=== PATIENT | female | born 1985 ===

== ENCOUNTER → 2022-03-20 | Outpatient (CLI) ==
[~2022-03-20] MED LIST: HYDR-3583 PO; IBP600T1 PO; PREN1TAB39 PO
== END ==
LOC: LABNPT 16:11
PROVIDERS: ATTEND Obstetrics & Gynecology
DX: O13.9 Gestational [pregnancy-induced] hypertension without significant proteinuria, unspecified trimester (principal); Z3A.00 Weeks of gestation of pregnancy not specified
CPT/HCPCS: 82570; 84156

== ENCOUNTER → 2022-03-21 | Outpatient (CLI) | payer BC ==
--- NOTE | 2022-03-21 12:50 | Diagnostic Imaging Report ---
INDICATION: Gestational diabetes. TECHNIQUE: Multiple real-time grayscale images were obtained over the gravid uterus. COMPARISON: None FINDINGS: There is a single live fetus in a cephalic presentation. heart rate was recorded at 146 bpm. Placenta is anterior and to the right. Amniotic fluid index is 21.4 cm. Biophysical profile was performed with a normal score of 8 out of 8. Biometrical measurements are as follows: Biparietal 8.64 cm, age 34 weeks 6 days. Head circumference 33.13 cm, age 37 weeks 6 days. Abdominal circumference 36.85 cm, age 40 weeks 6 days. Femur length 7.19 cm, age 36 weeks 6 days. Sonographic estimate age: 37 weeks 5 days. Sonographic estimated date of delivery: 04/06/2022. Estimated Weight: 3603 gm (+/- 526 gm). LMP percentile: NA%. heart rate: 146 beats per minute. number: 1 of 1. IMPRESSION: Single live IUP of 37-38 weeks gestational age with estimated date of confinement sonographically of 04/06/2022. Biophysical profile score is normal at 8 out of 8. Dictated by: Dictated on workstation # [id number]
== END ==
LOC: RAD 09:57 → MERGE 09:57
PROVIDERS: ATTEND Obstetrics & Gynecology
DX: O24.419 Gestational diabetes mellitus in pregnancy, unspecified control (principal); Z3A.37 37 weeks gestation of pregnancy
CPT/HCPCS: 76805; 76819

== ENCOUNTER 2022-03-24 09:02 | Outpatient (CLI) | payer BC ==
[~2022-03-24] VITALS: Ht 152.4 cm; Wt 74.1 kg
[2022-03-26] MEDS ORDERED: DOCU100C37 PO (08:59)
[2022-03-26] MEDS ORDERED: IBUP-844 PO (08:59)
[2022-03-26] MEDS ORDERED: ACHD5005 PO (08:59)
[2022-03-26] MEDS ORDERED: LABE200T7 PO (08:59)
== END 2022-03-24 14:07 | disposition home or self-care (01) ==
LOC: PREOP 09:02 → MERGE 09:02 → PREOP 14:07
PROVIDERS: ATTEND Obstetrics & Gynecology
DX: Z01.818 Encounter for other preprocedural examination (principal)

== ENCOUNTER 2022-03-26 05:38 | Inpatient (IN) | payer BC ==
[2022-03-26] VITALS (13 sets, daily range): BP systolic 117–181; BP diastolic 62–90
[~2022-03-26] VITALS: Ht 152.4 cm; Wt 74.3 kg
[2022-03-26] MEDS ORDERED: ceFAZolin 2 GM IV Premixed 50 ML IV ONE (06:00)
[2022-03-26 06:11] LABS: BASOPHILS % (AUTO) 1 % (0-10); EOSINOPHILS # (AUTO) 0.1 10^3/uL (0.0-0.3); EOSINOPHILS % (AUTO) 1 % (0-10); HEMATOCRIT 35 % (35-52); HEMOGLOBIN 11.5 g/dL (11.5-16.0); LYMPHOCYTES # (AUTO) 1.5 10^3/uL (1.0-4.0); LYMPHOCYTES % (AUTO) 24 % (12-44); MEAN CORPUSCULAR HEMOGLOBIN 28 pg (25-34); MEAN CORPUSCULAR HGB CONC 33 g/dL (32-36); MEAN CORPUSCULAR VOLUME 84 fL (80-99); MEAN PLATELET VOLUME 10.7 fL (9.0-12.2); MONOCYTES # (AUTO) 0.5 10^3/uL (0.0-1.0); MONOCYTES % (AUTO) 7 % (0-12); NEUTROPHILS # (AUTO) 4.2 10^3/uL (1.8-7.8); NEUTROPHILS % (AUTO) 66 % (42-75); PLATELET COUNT 158 10^3/uL (130-400); WHITE BLOOD COUNT 6.3 10^3/uL (4.3-11.0)
[2022-03-26] MEDS ORDERED: METOCLOPRAMIDE INJ 10 MG/2 ML (REGLAN) IV ONE (06:15)
[2022-03-26] MEDS ORDERED: CITRIC ACID/SOB CIT (BICITRA) 30 ML UDC PO ONE (06:15)
[2022-03-26] MEDS ORDERED: LACTATED RINGERS 1,000 ML IV SCH (06:15)
[2022-03-26] MEDS ORDERED: FAMOTIDINE 20MG/2ML IV (PEPCID) IV ONE (06:15)
--- NOTE | 2022-03-26 07:04 | History & Physical-OB ---
OB - Chief Complaint & HPI Date/Time Date of Admission: Date of Admission: Mar 26, 2022 at 05:38 Date seen by a Provider: Mar 26, 2022 Time Seen by a Provider: 07:05 Chief Complaint/History OB-Reason for Admission/Chief: Section Hx : 3 Hx Para: 2 Expected Date of Delivery: Apr 10, 2022 Gestational Age in Weeks: 37 Gestational Age in Days: 6 Other reason for admission: Delivery due to mild PreE, and GDM. Admission Nurse Assessment Rev: Yes Allergies and Home Medications Allergies Coded Allergies: No Known Drug Allergies (Unverified , 03/24/22) Patient Home Medication List Home Medication List Reviewed: Yes No Active Prescriptions or Reported Meds OB - History Hx of Present Care: Yes Ultrasounds: Normal mid trimester US Obstetrical Complications: Gestational Diabetes, Pre-eclampsia Medical Complications: None Obstetrical History Hx Termination: No Hx Multiple Gestation: No Hx Stillbirth: No Hx Complication: No Hx Induced Hypertens: No Hx Maternal Gestational Diabet: No Delivery History Hx Dystocia: No Hx Large For Gestational Age I: No Hx Small for Gestational Age I: No Hx Section: Yes Hx Vaginal Delivery Post C-Sec: No Hx Blood Disorders: Yes Patient Past Medical History n/a Social History/Family History 2nd Hand Smoke Exposure: No Immunizations Second COVID19 Vaccination: 06/01 COVID19 Vaccine Seismic Observer: maderna Tetanus Booster (TDap): Unknown OB - Admission Exam Physical Exam Vitals: Vital Signs 03/26/22 06:37 Pulse 72 Resp 18 B/P (MAP) 160/72 (101) Pulse Ox 100 O2 Delivery Room Air HEENT: NCAT Heart: Rhythm Normal Lungs: Clear Abdomen: Gravid Extremities: Normal Reflexes: Normal Heart Rate: 130's Accelerations: Accelerations Present Decelerations: No Decelerations Short Term Variability: Present Half-Way Variability: Average (6-25) Contractions on Admission: 6-10 Minutes Apart Intensity: Mild Labs Laboratory Tests Test 03/26/22 05:50 Range/Units White Blood Count 6.3 4.3-11.0 10^3/uL Red Blood Count 4.13 3.80-5.11 10^6/uL Hemoglobin 11.5 11.5-16.0 g/dL Hematocrit 35 35-52 % Mean Corpuscular Volume 84 80-99 fL Mean Corpuscular Hemoglobin 28 25-34 pg Mean Corpuscular Hemoglobin Concent 33 32-36 g/dL Red Cell Distribution Width 17.3 H 10.0-14.5 % Platelet Count 158 130-400 10^3/uL Mean Platelet Volume 10.7 9.0-12.2 fL Immature Granulocyte % (Auto) 1 % Neutrophils (%) (Auto) 66 42-75 % Lymphocytes (%) (Auto) 24 12-44 % Monocytes (%) (Auto) 7 0-12 % Eosinophils (%) (Auto) 1 0-10 % Basophils (%) (Auto) 1 0-10 % Neutrophils # (Auto) 4.2 1.8-7.8 10^3/uL Lymphocytes # (Auto) 1.5 1.0-4.0 10^3/uL Monocytes # (Auto) 0.5 0.0-1.0 10^3/uL Eosinophils # (Auto) 0.1 0.0-0.3 10^3/uL Basophils # (Auto) 0.0 0.0-0.1 10^3/uL Immature Granulocyte # (Auto) 0.1 0.0-0.1 10^3/uL Glucose Level 106 H 70-105 MG/DL OB - Assessment/Plan/Diagnosis Assessment Assessment: section Admission Dx 37 yo @37 weeks Previous AMA GDM Mild PreE Admission Status: Inpatient Order (span 2 midnights) Reason for Inpatient Admission: Repeat Plan Plan: Section KATIE HARPER DO Mar 26, 2022 07:04
[2022-03-26] MEDS ORDERED: fentaNYL INJ 100 MCG/2 ML AMP ONE (07:11)
[2022-03-26] MEDS ORDERED: OXYTOCIN PRE-MIX DRIP 1,000 ML IV ONE (07:12)
[2022-03-26] MEDS ORDERED: BUPIVACAINE 0.5% 30 ML (SENSORCAINE) VIAL ONE (07:57)
--- NOTE | 2022-03-26 08:52 | Discharge Inst-Women's Service ---
Discharge Inst-Women's Serv Depart Medication/Instructions New, Converted or Re-Newed RX: Transmitted to Pharmacy Final Diagnosis POD 2 RLTCS Problems Reviewed?: Yes Consults/Follow Up Additional Follow Up: Yes Orders/Referrals Dr. Gomez in 7-[address] Ramirez in 6 weeks Activity Activity: Activity as Tolerated Driving Instructions: No Driving for 1 Week NO SMOKING: NO SMOKING Nothing Inside Vagina: No Douching, No Dilley, No Tampons Diet Discharge Diet: No Restrictions Symptoms to Report to : Bleeding Excessive, Pain Increased, Fever Over 101 Degrees F, Vaginal Bleeding Increase, Questions/Concerns For Any Problems or Questions: Contact Your Physician Skin/Wound Care Infection Signs and Symptoms: Increased Redness, Foul Odor of Wound, Increased Drainage, Skin Itchy or Has a Rash, Increased Swelling, Temperature Above 101 F Operative Area Clean and Dry: Keep Incision Clean/Dry Stitches/Alex/Dermabond: Dermabond, Care of Stitches Bathing Instructions: KATIE Feldman DO Mar 26, 2022 08:52
[2022-03-26] MEDS ORDERED: ACHD5005 PO (08:59)
[2022-03-26] MEDS ORDERED: DOCU100C37 PO (08:59)
[2022-03-26] MEDS ORDERED: LABE200T7 PO (08:59)
[2022-03-26] MEDS ORDERED: IBUP-844 PO (08:59)
[2022-03-26] MEDS ORDERED: NALOXONE 0.4 MG/ML 1 ML (NARCAN) VIAL IV PRN (09:00)
[2022-03-26] MEDS ORDERED: LABETALOL 200 MG (NORMODYNE) TAB PO SCH (09:00)
[2022-03-26] MEDS ORDERED: ONDANSETRON 4 MG/2 ML (SDV) Z0FRAN IVP PRN (09:00)
[2022-03-26] MEDS ORDERED: TETANUS,DIPTH,PERTUSS P/F (BOOSTRIX) 0.5 ML VIAL IM SCH (09:00)
[2022-03-26] MEDS ORDERED: MEASLES,MUMPS,RUBELLA 1 EA INJ SC SCH (09:00)
[2022-03-26] MEDS ORDERED: OXYTOCIN PRE-MIX DRIP 500 ML IV ONE (09:01)
[2022-03-26] MEDS: OXYTOCIN PRE-MIX DRIP 500 ML IV SCH ×2 (09:02→13:21)
[2022-03-26] MEDS: DOCUSATE SODIUM 100 MG (COLACE) CAP PO SCH ×2 (09:33→21:07)
[2022-03-26] MEDS ORDERED: FUROSEMIDE 40 MG/4 ML INJ (LASIX) IVP NR (12:00)
[2022-03-26] MEDS ORDERED: hydrALAZINE (APESOLINE) 20 MG/ML VIAL IV NR (12:00)
[2022-03-26] MEDS: CATHETER FLUSH 10 ML SYR IV SCH ×2 (12:18→12:30)
[2022-03-26] MEDS: LACTATED RINGERS 1,000 ML IV SCH ×2 (12:24→13:22)
[2022-03-26] MEDS: KETOROLAC 30 MG/ML VIAL IV SCH ×2 (12:30→18:20)
--- NOTE | 2022-03-26 13:49 | OPERATIVE REPORT ---
DATE OF SERVICE: PREOPERATIVE DIAGNOSES: 1. A 37-year-old G3, P2 at 37 weeks and 6 days gestation. 2. Mild preeclampsia. 3. Previous section. 4. Advanced maternal age. 5. Gestational diabetes. POSTOPERATIVE DIAGNOSES: 1. A 37-year-old G3, P2 at 37 weeks and 6 days gestation. 2. Mild preeclampsia. 3. Previous section. 4. Advanced maternal age. 5. Gestational diabetes. PROCEDURE: Repeat low transverse section. SURGEON: Yamil Harper DO ANIMAL CARETAKER SUPERVISOR: Ar Ramirez, who was necessary for manipulation and retraction throughout the procedure. ANESTHESIA: Spinal. ESTIMATED BLOOD LOSS: 600 mL. URINE OUTPUT: 75 mL clear at the end of procedure. FLUIDS: 1300 mL lactated Ringer's solution. FINDINGS: A live male , weight pending. Apgars of 7 and 9. Grossly normal appearing uterus, bilateral fallopian tubes and ovaries with dense scarring of the vesicouterine peritoneum. SPECIMEN SENT: Placenta. INDICATIONS FOR PROCEDURE: This 37-year-old female is a patient who is consulted to my office last week at [address] Ramirez for repeat . She was found to have elevated blood pressures at that appointment as well as some mild elevation in her protein to creatinine ratio 0.3. This has diagnosed her with mild preeclampsia. However, the patient was asymptomatic, we waited until this week at 37 weeks to proceed with delivery. She also had gestational diabetes, which according to Dr. Ramirez was managed by diet; however, I had no blood sugars to evaluate this myself. In the preoperative area, we reviewed the risk of the procedure including risk of bleeding, infection, damage to surrounding structures including, but not limited to bowel, bladder, ureter, kidneys, possible need for reoperation, postoperative complications that may occur, risk from anesthesia, recovery timeframe. After everything was discussed with the patient in detail, consent was obtained, the patient was taken to the operating room. OPERATIVE REPORT IN DETAIL: Once in the operating room, spinal analgesia was found to be adequate, placed in supine position with leftward tilt, prepped and draped in normal sterile fashion. Timeout was performed and anesthesia was tested. I then make a Pfannenstiel skin incision through the previously existing scar using knife and carried down to underlying fascia using Bovie cautery. The fascial incision extended laterally using Bovie cautery. Superior aspect of fascial incision was then grasped with Jan clamps, tented up and dissected off the underlying rectus muscle. Inferior aspect of fascial incision was then grasped with Jan clamps, tented up and dissected off the underlying rectus muscles. Rectus muscle dissected down the midline using sharp dissection, which exposed the peritoneum, which I entered bluntly and extended using blunt traction. An Nitish ring retractor was placed in the peritoneal incision, which offers excellent lateral sidewall retraction. I identified the lower uterine segment, which was found to be thinned out and make a low transverse incision to the vesicouterine peritoneum and bluntly dissected off the lower uterine segment, creating a bladder flap. I then proceeded with my myotomy until membranes were visualized, at which point I extended the uterine incision laterally and superiorly using bandage scissors. The was found in vertex presentation after amniotomy was performed, clear fluid was noted. The 's head was elevated up the incision where the nares and oropharynx were bulb suctioned. Anterior and posterior shoulders were delivered. The was then brought to the operative field where cord doubly clamped and cut and infant was taken off the operative field by Dr. Ramirez. Cord blood was collected, 3-vessel cord with intact placenta was delivered spontaneously thereafter. IV Pitocin was initiated to facilitate uterine contraction. Uterine fundus confirmed by manual massage and uterus was exteriorized and cleared of all endometrial clots and debris. I then proceeded with closing the uterine incision using 0 Vicryl suture in running locked fashion. Second layer of imbricating 0 Monocryl was placed. Excellent hemostasis was noted after doing this. I then placed the uterus back in the pelvis and copiously irrigated the pelvis using normal saline. Once again, there was no active bleeding noted from any of my dissection planes, I placed Interceed antiadhesive over my low transverse incision. I then removed the Nitish ring retractor and then proceeded with closing the peritoneum using 3-0 Vicryl suture in a running fashion. The rectus muscle reapproximated using 3-0 Vicryl suture in interrupted fashion. The fascia was reapproximated using 0 Vicryl suture in running fashion. Subcutaneous tissue was reapproximated using 3-0 plain interrupted subcutaneous stitch and skin reapproximated using 4-0 Monocryl running subcuticular. Dermabond was applied to incision and sterile dressing with adhesive white tape. The patient tolerated the procedure well and sent to recovery area in stable condition. Lap and sponge counts were correct at the end of the procedure. Instrument count was correct as well. Two grams of Ancef given preoperatively for infection prophylaxis. Job ID: [id number] DocumentID: [id number] Dictated Date: 03/26/2022 09:24:52 Hospitality Aide Date: 03/26/2022 13:48:50 Dictated By: YAMIL HARPER DO
[2022-03-26] MEDS: HYDROcodone/APAP 5 MG/325 MG (LORTAB) TAB PO PRN (16:54)
[2022-03-26] MEDS: LABETALOL 200 MG (NORMODYNE) TAB PO SCH (21:08)
[2022-03-27 00:14] VITALS: BP 151/69
[2022-03-27 00:15] VITALS: BP 154/64
[2022-03-27] MEDS: KETOROLAC 30 MG/ML VIAL IV SCH ×2 (00:17→05:49)
[2022-03-27] MEDS: HYDROcodone/APAP 5 MG/325 MG (LORTAB) TAB PO PRN ×3 (00:17→17:42)
[2022-03-27 04:01] VITALS: BP 132/65
[2022-03-27] MEDS: CATHETER FLUSH 10 ML SYR IV SCH ×2 (05:49→16:31)
[2022-03-27] MEDS: LACTATED RINGERS 1,000 ML IV SCH ×3 (05:50→14:00)
[2022-03-27 06:27] LABS: BASOPHILS % (AUTO) 0 % (0-10); EOSINOPHILS % (AUTO) 0 % (0-10); HEMATOCRIT 28 % (35-52); HEMOGLOBIN 9.3 g/dL (11.5-16.0); LYMPHOCYTES # (AUTO) 1.8 10^3/uL (1.0-4.0); LYMPHOCYTES % (AUTO) 18 % (12-44); MEAN CORPUSCULAR HEMOGLOBIN 28 pg (25-34); MEAN CORPUSCULAR HGB CONC 33 g/dL (32-36); MEAN CORPUSCULAR VOLUME 84 fL (80-99); MEAN PLATELET VOLUME 10.2 fL (9.0-12.2); MONOCYTES # (AUTO) 0.6 10^3/uL (0.0-1.0); MONOCYTES % (AUTO) 7 % (0-12); NEUTROPHILS # (AUTO) 7.4 10^3/uL (1.8-7.8); NEUTROPHILS % (AUTO) 75 % (42-75); PLATELET COUNT 136 10^3/uL (130-400); WHITE BLOOD COUNT 9.9 10^3/uL (4.3-11.0)
--- NOTE | 2022-03-27 08:42 | Postpartum Progress Note ---
Note Note Day # 1 Subjective: Patient is without complaints. Ambulating, voiding. Tolerating a regular diet without nausea or vomiting. Normal lochia. Pain is well controlled with oral pain medications. Objective: Physical Exam: General - Alert and oriented, no apparent distress Abdomen - Soft, appropriately tender to palpation, non-distended, fundus firm at umbilicus Extremities - no edema, negative Suyapa's bilaterally Incision- c/d/i Assessment: POD 1 RLTCS Mild PreE Acute blood loss anemia Plan: Routine care. Encourage breast feeding. Encourage ambulation. Ferrous sulfate supplementation. Plan for discharge tomorrow Vitals - Labs Vital Signs - I&O Vital Signs Date Time Temp Pulse Resp B/P (MAP) Pulse Ox O2 Delivery O2 Flow Rate FiO2 03/27/22 04:01 36.4 71 18 132/65 (87) 97 Room Air 03/27/22 00:15 154/64 (94) 03/27/22 00:14 36.9 68 18 151/69 (96) 95 Room Air 03/26/22 20:16 36.9 64 18 146/68 (94) 96 Room Air 03/26/22 20:15 148/62 (90) 03/26/22 16:45 36.8 58 18 170/78 (108) 98 Room Air 03/26/22 13:25 156/76 (102) 03/26/22 11:30 36.5 68 18 172/74 (106) 98 Room Air 03/26/22 10:20 36.2 52 18 174/80 (111) 98 Room Air 03/26/22 09:25 36.5 18 181/90 (120) 97 Room Air 03/26/22 09:10 36.4 18 168/84 (112) 98 Room Air 03/26/22 08:55 36.2 16 151/87 (108) 98 Room Air I & O 03/27/22 07:00 Intake Total 3020 ml Output Total 2800 ml Balance 220 ml Labs Laboratory Tests 03/27/22 06:17: White Blood Count 9.9, Red Blood Count 3.35L, Hemoglobin 9.3L, Hematocrit 28L, Mean Corpuscular Volume 84, Mean Corpuscular Hemoglobin 28, Mean Corpuscular Hemoglobin Concent 33, Red Cell Distribution Width 17.2H, Platelet Count 136, Mean Platelet Volume 10.2, Immature Granulocyte % (Auto) 0, Neutrophils (%) (Auto) 75, Lymphocytes (%) (Auto) 18, Monocytes (%) (Auto) 7, Eosinophils (%) (Auto) 0, Basophils (%) (Auto) 0, Neutrophils # (Auto) 7.4, Lymphocytes # (Auto) 1.8, Monocytes # (Auto) 0.6, Eosinophils # (Auto) 0.0, Basophils # (Auto) 0.0, Immature Granulocyte # (Auto) 0.0 KATIE HARPER DO Mar 27, 2022 08:42
--- NOTE | 2022-03-27 10:02 | Anesthesia-Regional Post-Op ---
Regional Patient Condition Mental Status: Alert, Oriented x3 Circulation: Same as Pre-Op Headache: Absent Sensation: Full Recovery Motor Block: Absent Post Op Complications Complications None Follow Up Care/Instructions Patient Instructions None needed. Anesthesia/Patient Condition Patient is doing well, no complaints, stable vital signs, no apparent adverse anesthesia problems. No complications reported per nursing. RADHA JOSUE CRNA Mar 27, 2022 10:02
[2022-03-27 11:20] VITALS: BP 124/65
[2022-03-27] MEDS: DOCUSATE SODIUM 100 MG (COLACE) CAP PO SCH ×2 (11:23→21:06)
[2022-03-27] MEDS: LABETALOL 200 MG (NORMODYNE) TAB PO SCH ×2 (11:23→21:06)
[2022-03-27] MEDS: IBUPROFEN 600 MG (MOTRIN) TAB PO SCH ×2 (11:23→17:42)
[2022-03-27 17:42] VITALS: BP 134/65
[2022-03-27 21:00] VITALS: BP 158/69
[2022-03-28] MEDS: IBUPROFEN 600 MG (MOTRIN) TAB PO SCH ×3 (00:23→10:44)
[2022-03-28] MEDS: HYDROcodone/APAP 5 MG/325 MG (LORTAB) TAB PO PRN ×2 (00:24→10:46)
[2022-03-28 00:25] VITALS: BP 120/68
[2022-03-28 06:30] VITALS: BP 157/73
--- NOTE | 2022-03-28 09:30 | Postpartum Progress Note ---
Note Note Day # 2 Subjective: Patient is without complaints. Ambulating, voiding. Tolerating a regular diet without nausea or vomiting. Normal lochia. Pain is well controlled with oral pain medications. Physical Exam: General - Alert and oriented, no apparent distress Abdomen - Soft, appropriately tender to palpation, non-distended, fundus firm at umbilicus; incision c/d/i Extremities - no edema, negative Suyapa's bilaterally Assessment: Post- day # 2, status post RLTCS Recovering well, hemodynamically stable Mild PreE Acute blood loss anemia Plan: Routine care. Encourage breast feeding. Encourage ambulation. Ferrous sulfate supplementation. Labetalol 200mg PO BID Plan for discharge today Vitals - Labs Vital Signs - I&O Vital Signs Date Time Temp Pulse Resp B/P (MAP) Pulse Ox O2 Delivery O2 Flow Rate FiO2 03/28/22 06:30 36.5 73 18 157/73 (101) 98 Room Air 03/28/22 00:25 36.5 85 18 120/68 (85) 97 Room Air 03/27/22 21:00 36.6 70 18 158/69 (98) 98 Room Air 03/27/22 17:42 36.3 76 18 134/65 (88) 97 Room Air 03/27/22 11:20 36.2 83 18 124/65 (84) 97 Room Air I & O 03/28/22 07:00 Intake Total 1800 ml Output Total 2425 ml Balance -625 ml Labs Microbiology 03/26/22 MRSA Screen - Final, Complete MRSA not isolated JAYNE CRUZ HOOP RIVETER Mar 28, 2022 09:30
[2022-03-28 10:40] VITALS: BP 125/74
[2022-03-28] MEDS: DOCUSATE SODIUM 100 MG (COLACE) CAP PO SCH (10:44)
[2022-03-28] MEDS: LABETALOL 200 MG (NORMODYNE) TAB PO SCH (10:46)
== END 2022-03-28 12:30 | disposition home or self-care (01) | DRG 787 ==
LOC: LDRP 05:38 → MERGE 07:30 → LDRP 08:27
PROVIDERS: ADMIT Obstetrics & Gynecology; ATTEND Obstetrics & Gynecology
PROC: 10D00Z1 Extraction of Products of Conception, Low, Open Approach (ICD-10-PCS; principal; 2022-03-26 07:30)
DX: O14.04 Mild to moderate pre-eclampsia, complicating childbirth (principal); D62 Acute posthemorrhagic anemia; O24.420 Gestational diabetes mellitus in childbirth, diet controlled; Z3A.37 37 weeks gestation of pregnancy; Z37.0 Single live birth; O34.211 Maternal care for low transverse scar from previous cesarean delivery; O90.81 Anemia of the puerperium
CPT/HCPCS: 36415; 82947; 85025; 86850; 86900; 86901; 87081; 94664

== ENCOUNTER 2023-08-19 15:40 | Emergency (ER) | payer OTHER, BC ==
[~2023-08-19 15:40] MED LIST changes: +ACHD5005 PO; +DOCU100C37 PO; +IBUP-844 PO; +LABE200T10 PO
--- NOTE | 2023-08-19 16:13 | ED General ---
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 She was at work, had a regular bottle of water sent next to a bottle of water that was poorly labeled actually had 30% hydrochloric acid in it. This occurred around 2:50 PM today. She put it in her mouth, and immediately spit it out. She immediately rinsed out her mouth with water. She confirms she did not swallow anything. She is having pain in her entire mouth. Has not had anything to eat or drink since then, but is swallowing her saliva without difficulty. She denies any respiratory issues or stomach pain. Allergies and Home Medications Allergies Coded Allergies: No Known Drug Allergies (Unverified , 03/24/22) Patient Home Medication List Home Medication List Reviewed: Yes Docusate Sodium (Docusate Sodium) 100 Mg Capsule, 100 MG PO BID PRN for CONSTIPATION-1ST LINE Prescribed by: KATIE HARPER on 03/26/22 0859 Hydrocodone Bit/Acetaminophen (HYDROcodone/APAP 5 MG/325 MG TAB) 1 Tab Tab, 1-2 EA PO Q6HR PRN for PAIN-MODERATE (5-7) Prescribed by: KATIE HARPER on 03/26/22 0900 Ibuprofen (Ibu) 600 Mg Tablet, 600 MG PO Q6HR Prescribed by: KATIE HARPER on 03/26/22 0859 Labetalol HCl (Labetalol HCl) 200 Mg Tablet, 200 MG PO BID Prescribed by: KATIE HARPER on 03/26/22 0859 Review of Systems Review of Systems Constitutional: No fever EENTM: see HPI Respiratory: no symptoms reported Cardiovascular: no symptoms reported Gastrointestinal: no symptoms reported Genitourinary: no symptoms reported Musculoskeletal: no symptoms reported Skin: no symptoms reported Psychiatric/Neurological: No Symptoms Reported Past Hpfuwwq-Akzudi-Acmevx Hx Immunizations Up To Date Tetanus Booster (TDap): Unknown Second COVID19 Vaccination Job: 06/01 Seasonal Allergies Seasonal Allergies: No Past Medical History Surgeries: Yes ( X2) Section Respiratory: No Cardiac: Yes (GESTATIONAL HTN) 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 4.0oz. [id number]; 31.99 BMI Method:Stated General Appearance: No Apparent Distress, WD/WN Eyes: Bilateral Eye Normal Inspection HEENT: PERRL/EOMI, Normal ENT Inspection, Pharynx Normal, Other (Normal voice, tolerating secretions, no obvious injury in her mouth) Neck: Full Range of Motion, Normal Inspection, Non Tender, Supple Respiratory: Chest Non Tender, Lungs Clear, Normal Breath Sounds, No Accessory Muscle Use, No Respiratory Distress Cardiovascular: Regular Rate, Rhythm, No Edema, Normal Peripheral Pulses Gastrointestinal: Normal Bowel Sounds, Non Tender, Soft Extremity: Normal Capillary Refill, Normal Inspection, Normal Range of Motion, Non Tender, No Calf Tenderness, No Pedal Edema Neurologic/Psychiatric: Alert, No Motor/Sensory Deficits, Normal Mood/Affect Skin: Normal Color, Warm/Dry Progress/Results/Core Measures Suspected Sepsis SIRS Temperature: Pulse: Respiratory Rate: Blood Pressure / Mean: Results/Orders Vital Signs/I&O 08/19/23 15:50 Temp 36.7 Pulse 100 Resp 16 B/P (MAP) 129/96 (107) Pulse Ox 99 Capillary Refill : Progress Note : Progress Note 38-year-old female with above history coming in after accidentally putting HCl in her mouth and spitting it out. ABCs were intact and vitals were stable on presentation. Physical exam reassuring including normal voice, tolerating secretions, and only pain in her mouth. I am not seeing any significant blistering or any injury in her mouth. I contacted poison control, they recommend p.o. challenging. Patient tolerated p.o. without difficulty. Her pain is better in her mouth, and she continues to not have any pain in her throat, chest, or abdomen. I believe she is stable for discharge with outpatient follow-up. She was sent home with strict return precautions. Departure Impression Primary Impression: Ingestion of caustic substance Qualified Codes: T54.91XA - Toxic effect of unspecified corrosive substance, accidental (unintentional), initial encounter Disposition: HOME, SELF-CARE Condition: Stable Departure-Patient Inst. Decision time for Depature: 17:00 [address]errals: [facility] (PCP/Family) Primary Care Physician Patient Instructions: Chemical Ingestion (DC) Add. Discharge Instructions: Fortunately it does not appear like any of the chemical went down your throat or was swallowed. Drink clear fluids until 7 PM today, if you are still feeling good at that point, you can eat regularly. Kmak to the ER if you have any severe throat pain, chest pain, or abdominal pain. Otherwise, your mouth will likely be very sore for the next few days. Afortunadamente, no parece que ninguna de las sustancias qumicas haya bajado por la garganta o se haya tragado. Татьяна lquidos kellee hasta las 7 p.m. de hoy, si todava se siente saritha en pascual momento, puede comer regularmente. Acuda a la jaguar de emergencias si tiene dolor intenso de garganta, dolor en el pecho o dolor abdominal. De lo contrario, es probable que le duela mucho la boca tommy los prximos ledezma. Work/School Note: Work Release Form Date Seen in the Emergency Department: Aug 19, 2023 Return to Work: Aug 20, 2023 Restrictions: No Restrictions RAJAN PATTEN MD Aug 19, 2023 16:13
[2023-08-19 16:53] VITALS: BP 103/67
== END 2023-08-19 17:07 | disposition home or self-care (01) ==
LOC: EDUNIT# 15:40 → ER 15:42
DX: T54.2X1A Toxic effect of corrosive acids and acid-like substances, accidental (unintentional), initial encounter (principal)
CPT/HCPCS: 99281